=== PATIENT | female | born 1940 | race Asian ===

== ENCOUNTER 2019-02-16 02:42 | Emergency (ER) | payer SELFPAY ==
[~2019-02-16] VITALS: Ht 154.9 cm; Wt 54.9 kg
[2019-02-16 02:48] VITALS: BP_SYST 136
--- NOTE | 2019-02-16 02:48 | NUR ---
Pt ambulatory to bed 8 for evaluation
--- NOTE | 2019-02-16 03:00 | NUR ---
Patient presents to ER with complaint of right wrist pain and swelling s/p mechanical fall. Per grandson, patient was on a bed cleaning the wall when she suddenly lost her balance and fell onto floor landing on her right wrist. Grandson states -KO and no other injury. Patient is non-[place] speaking. No other symptoms or complaints. Patient presents with splint in place.
[2019-02-16] MEDS ORDERED: CALC-823 PO (03:06)
--- NOTE | 2019-02-16 03:09 | NUR ---
ER at bedside examining patient.
[2019-02-16 03:45] VITALS: BP_SYST 132
--- NOTE | 2019-02-16 03:45 | NUR ---
Patient given written and verbal discharge instructions and verbalizes understanding. ER MD discussed with patient the results and treatment provided. Patient in stable condition. ID arm band removed. No Rx given. Patient educated on pain management and to follow up with PMD. Pain Scale 2/10 tolerable to patient. Opportunity for questions provided and answered.
== END 2019-02-16 03:45 | disposition home or self-care (01) ==
LOC: SED 02:42
DX: S52.591A Other fractures of lower end of right radius, initial encounter for closed fracture (principal); S52.611A Displaced fracture of right ulna styloid process, initial encounter for closed fracture; Z88.0 Allergy status to penicillin; W19.XXXA Unspecified fall, initial encounter; Y93.89 Activity, other specified; Y92.89 Other specified places as the place of occurrence of the external cause; Y99.8 Other external cause status
CPT/HCPCS: 99283